=== PATIENT | male | born 1995 | race Caucasian/White ===

== ENCOUNTER 2023-12-28 23:14 | Emergency (ER) | payer SELFPAY ==
[~2023-12-28] VITALS: Ht 167.6 cm; Wt 83.5 kg
[2023-12-28] MEDS ORDERED: HYDROCODONE/APAP 5/325MG TABLET ONE (23:58)
[2023-12-29] MEDS ORDERED: HYDROCODONE/APAP 5/325MG TABLET PO ONE
[2023-12-29] MEDS ORDERED: IBUP-1957 PO (00:45)
[2023-12-29 01:49] VITALS: BP 135/84; TEMP 98.1; O2SAT 97
== END 2023-12-29 01:50 | disposition home or self-care (01) ==
LOC: ER 23:32
DX: S83.8X2A Sprain of other specified parts of left knee, initial encounter (principal); S93.492A Sprain of other ligament of left ankle, initial encounter; S16.1XXA Strain of muscle, fascia and tendon at neck level, initial encounter; S39.012A Strain of muscle, fascia and tendon of lower back, initial encounter; S09.8XXA Other specified injuries of head, initial encounter; Z98.890 Other specified postprocedural states; Z79.899 Other long term (current) drug therapy; V89.2XXA Person injured in unspecified motor-vehicle accident, traffic, initial encounter; Y93.89 Activity, other specified; Y92.89 Other specified places as the place of occurrence of the external cause; Y99.8 Other external cause status
CPT/HCPCS: 70450-TC; 72125-TC; 72131-TC; 73564-TC; 73610-TC